=== PATIENT | male | born 1955 | race African-American/Black ===

== ENCOUNTER 2020-05-18 06:02 | Day surgery (SDC) | payer OTHER ==
[~2020-05-18] VITALS: Ht 167.6 cm; Wt 102.1 kg
[~2020-05-18 06:02] MED LIST: AMIO100T3 OR; BENA10TA9 PO; FURO20TA3 PO; SULF500T8 PO; VERA240T67; WARF4TAB33 PO
[2020-05-18] MEDS ORDERED: IODIXANOL 320MG/ML 100ML BTL IV ONE ×2 (07:43→09:17)
[2020-05-18] MEDS ORDERED: LIDOCAINE 2%HCL (LOCAL ANESTH.) INJ 20ML MDV ONE (07:43)
[2020-05-18 09:02] LABS: INR 1.31 (0.9-1.15)
[2020-05-18] MEDS ORDERED: ANGIOMAX 250 MG VIAL IV ONE (09:20)
[2020-05-18] MEDS ORDERED: fentaNYL CITRATE 100 MCG/2 ML VL ONE (09:20)
[2020-05-18] MEDS ORDERED: MIDAZOLAM HCL 1MG/1ML-2 ML VIAL ONE (09:21)
[2020-05-18] MEDS ORDERED: SODIUM CHL 0.9% 0 ML ONE (09:21)
[2020-05-18] MEDS ORDERED: diphenhdrAMINE HCL 50 MG/1 ML VL ONE (09:32)
[2020-05-18] MEDS ORDERED: ACETAMINOPHEN 500 MG TAB PO PRN (10:45)
[2020-05-18] MEDS ORDERED: HYDROcodone-ACET 5/325MG TAB PO PRN (10:45)
[2020-05-18] MEDS ORDERED: ONDANSETRON HCL 4 MG/2 ML VIAL IV PRN (10:45)
== END 2020-05-18 14:09 | disposition home or self-care (01) ==
LOC: CATH 06:02
PROVIDERS: ATTEND Internal Medicine
DX: I70.212 Atherosclerosis of native arteries of extremities with intermittent claudication, left leg (principal); G47.33 Obstructive sleep apnea (adult) (pediatric); Z79.899 Other long term (current) drug therapy; Z11.59 Encounter for screening for other viral diseases; Z98.890 Other specified postprocedural states
CPT/HCPCS: 36247; 36415; 75716; 85610; 93005; C1760; C1769; C1894; J1200; J1644; J2250; J3010; J7030; Q9967; U0003; 99152; 99153